=== PATIENT | female | born 1950 | race Caucasian/White ===

== ENCOUNTER 2018-06-13 05:44 | Day surgery (SDC) | payer OTHER ==
[~2018-06-13] VITALS: Ht 160 cm; Wt 83.6 kg
[2018-06-13] MEDS ORDERED: LIDOCAINE 4% 50 ML SOLUTION TP ONE (05:45)
[2018-06-13] MEDS ORDERED: BENZOCAINE 20% 50 MCG/SPRAY 57 GM TP ONE (05:45)
[2018-06-13] MEDS ORDERED: LIDOCAINE 2% 30 ML JELLY TP ONE (05:45)
[2018-06-13] MEDS ORDERED: SODIUM CHLORIDE 0.9% 1,000 ML IV ONE ×2 (06:27→06:30)
[2018-06-13] MEDS ORDERED: BECL10.62 IH (07:16)
[2018-06-13] MEDS ORDERED: LOSA25TA41 PO (07:16)
[2018-06-13] MEDS ORDERED: SUCR1TAB PO (07:16)
[2018-06-13] MEDS ORDERED: PRAV40TA4 PO (07:16)
[2018-06-13] MEDS ORDERED: OMEP20 PO (07:16)
[2018-06-13] MEDS ORDERED: AMLO-511 PO (07:16)
[2018-06-13] MEDS ORDERED: PRED10 PO (07:16)
[2018-06-13] MEDS ORDERED: MIDAZOLAM HCL 2 MG/2 ML VIAL ONE (08:08)
[2018-06-13] MEDS ORDERED: FentaNYL CITRATE-PF 100 MCG/2 ML VIAL ONE (08:09)
[2018-06-13] MEDS ORDERED: MethylPREDNISolone SOD SUCC 125 MG/2 ML VIAL IVP ONE (09:15)
[2018-06-13] MEDS ORDERED: MethylPREDNISolone SOD SUCC 125 MG/2 ML VIAL ONE (09:19)
[2018-06-13] MEDS ORDERED: OXYGEN THERAPY IH SCH (20:00)
== END 2018-06-13 10:45 | disposition home or self-care (01) ==
LOC: SURGERY 05:44
PROVIDERS: ATTEND Internal Medicine Critical Care Medicine
DX: J38.4 Edema of larynx (principal); B37.0 Candidal stomatitis; J98.09 Other diseases of bronchus, not elsewhere classified; J98.8 Other specified respiratory disorders; I10 Essential (primary) hypertension; E78.00 Pure hypercholesterolemia, unspecified; I70.0 Atherosclerosis of aorta; K76.89 Other specified diseases of liver; Z87.891 Personal history of nicotine dependence; Z79.899 Other long term (current) drug therapy
CPT/HCPCS: 31623; 31624; 71045; 71250; 87015; 87070; 87205; 87206; 87220; 88108; 88312; J2250; J2930; J3010; J7030